=== PATIENT | female | born 1970 | race Caucasian/White ===

== ENCOUNTER → 2018-03-10 | Outpatient (CLI) | payer BC ==
[~2018-03-10] MED LIST: AZELASTINE137 MCG/0. BOTH NARES; CLARITIN,ALAVAR10 MG PO; CLEOCIN300 MG PO; Claritin,Alavart PO; Levothroid,Synthroid PO; MULTIPLE VITAM1 EACH PO; Motrin PO; NATALCARE RX1 TABLET PO; Percocet 5/325,Endoc PO; SYNTHROID150 MCG PO; Senokot S,Pericolace PO; TYLENOL EXTRA500 MG PO; ZOLOFT50 MG PO
== END | disposition home or self-care (01) ==
LOC: NUC 08:07
DX: R14.0 Abdominal distension (gaseous) (principal)
CPT/HCPCS: 78264; A9541

== ENCOUNTER → 2018-04-19 | Outpatient (CLI) | payer BC ==
[~2018-04-19] VITALS: Ht 170.2 cm; Wt 90.7 kg
[~2018-04-19] MED LIST changes: +NOLVADEX10 MG PO
== END | disposition home or self-care (01) ==
LOC: AMB 07:30
PROC: 0DBP8ZZ Excision of Rectum, Via Natural or Artificial Opening Endoscopic (ICD-10-PCS; principal; 2018-04-19)
PROC: 0DB68ZX Excision of Stomach, Via Natural or Artificial Opening Endoscopic, Diagnostic (ICD-10-PCS; principal; 2018-04-19)
DX: K22.10 Ulcer of esophagus without bleeding (principal); K62.1 Rectal polyp; K57.30 Diverticulosis of large intestine without perforation or abscess without bleeding; Z88.1 Allergy status to other antibiotic agents
CPT/HCPCS: 88305; 88342 TC; J7643

== ENCOUNTER 2018-05-08 08:09 | Observation (INO) | payer BC ==
[~2018-05-08] VITALS: Ht 170.2 cm; Wt 93.9 kg
[2018-05-08 09:20] LABS: BASOPHIL (%) 0.4 % (0-1); EOSINOPHIL (%) 2.3 % (0-5); EOSINOPHIL COUNT 0.2 K/uL (0-0.3); HEMATOCRIT 29.1 % (36.0-46.0); HEMOGLOBIN 9.8 G/DL (11.9-15.5); IMMATURE GRANULOCYTE (%) 0.2 % (0.0-0.7); LYMPHOCYTE (%) 27.6 % (15-42); LYMPHOCYTE COUNT 2.3 K/uL (1.0-2.8); MCH 29.6 PG (29.0-34.0); MCHC 33.7 G/DL (30.0-36.0); MCV 87.9 FL (83-99); MONOCYTE (%) 6.7 % (3-12); MONOCYTE COUNT 0.6 K/uL (0-0.8); NEUTROPHIL (%) 62.8 % (45-76); NEUTROPHIL COUNT 5.1 K/uL (1.8-6.4); PLATELET COUNT 154 K/uL (156-360); RBC DIS.WIDTH-CV 12.8 % (11.8-14.6); RBC DIS.WIDTH-SD 41.2 % (39-53); RED BLOOD COUNT 3.31 M/uL (3.80-5.20); WHITE BLOOD COUNT 8.2 K/uL (4.1-10.2)
[2018-05-08 10:08] LABS: CHLORIDE 116 MEQ/L (99-109); CREATININE 0.5 MG/DL (0.6-1.3); GFR ESTIMATE (CALCULATED) > 59 mL/min/; GLUCOSE 88 mg/dL (70-99); POTASSIUM 2.5 MEQ/L (3.7-5.4); SODIUM 143 MEQ/L (136-147); UREA NITROGEN (BUN) 9 mg/dL (9-23)
[2018-05-08] MEDS ORDERED: FIORICET 50-301 EAC1 PO (10:42)
[2018-05-08] MEDS ORDERED: IRON325 M1 PO (10:44)
[2018-05-08 13:25] LABS: ERTH.SED.RATE < 1 MM/HR (0-20)
[2018-05-08 13:42] LABS: ALBUMIN 2.8 G/DL (3.2-4.8); MAGNESIUM 1.5 mg/dl (1.3-2.7); PHOSPHORUS 3.3 mg/dL (2.5-4.9)
[2018-05-08 13:59] VITALS: BP 172/81
[2018-05-08 14:26] LABS: INTACT PARATHYROID HORMONE 46 pg/mL (10-69)
[2018-05-08 14:28] VITALS: BP 167/86
[2018-05-08 15:59] VITALS: BP 167/86
[2018-05-08 16:31] LABS: PTT 20.8 SEC (25-37)
[2018-05-08 16:40] LABS: ALBUMIN 3.9 G/DL (3.2-4.8); ALKALINE PHOSPHATASE 62 IU/L (3-129); ALT (GPT) 18 IU/L (3-49); AST (GOT) 20 IU/L (2-34); CHLORIDE 106 MEQ/L (99-109); CREATININE 0.7 MG/DL (0.6-1.3); GFR ESTIMATE (CALCULATED) > 59 mL/min/; IRON 51 MCG/DL (35-150); SODIUM 139 MEQ/L (136-147); TOTAL BILIRUBIN 0.4 MG/DL (0.0-1.0); TOTAL PROTEIN 6.5 G/DL (6.4-8.3); TRANSFERRIN SATUR. 20 % (20-55); UREA NITROGEN (BUN) 9 mg/dL (9-23)
[2018-05-08 16:53] LABS: THYROTROPIN (TSH) 4.5 MIU/L (0.4-5.5)
[2018-05-08 16:56] LABS: GLUCOSE 133 mg/dL (70-99); POTASSIUM 4.4 MEQ/L (3.7-5.4)
[2018-05-08 16:58] LABS: FERRITIN 65 NG/ML (10-291)
[2018-05-08 17:11] LABS: FOLIC ACID (FOLATE) 14.2 NG/ML (5.0-22.0)
[2018-05-08 17:16] LABS: HEMATOCRIT 39.5 % (36.0-46.0); MCV 87.8 FL (83-99)
[2018-05-08 17:42] LABS: HEMOGLOBIN 12.9 G/DL (11.9-15.5)
[2018-05-08 18:22] VITALS: BP 137/81
[2018-05-08 19:13] VITALS: BP 177/83
[2018-05-08 23:44] VITALS: BP 150/81
[2018-05-09 04:45] VITALS: BP 147/81
[2018-05-09 05:36] LABS: HEMATOCRIT 42.6 % (36.0-46.0); MCH 28.7 PG (29.0-34.0); MCHC 32.9 G/DL (30.0-36.0); MCV 87.3 FL (83-99); RBC DIS.WIDTH-CV 13.1 % (11.8-14.6); RBC DIS.WIDTH-SD 41.5 % (39-53); WHITE BLOOD COUNT 10.6 K/uL (4.1-10.2)
[2018-05-09 06:06] LABS: CHLORIDE 106 MEQ/L (99-109); CREATININE 0.7 MG/DL (0.6-1.3); GFR ESTIMATE (CALCULATED) > 59 mL/min/; GLUCOSE 133 mg/dL (70-99); POTASSIUM 4.4 MEQ/L (3.7-5.4); SODIUM 139 MEQ/L (136-147); UREA NITROGEN (BUN) 13 mg/dL (9-23)
[2018-05-09 06:07] LABS: PLATELET COUNT 234 K/uL (156-360); RED BLOOD COUNT 4.88 M/uL (3.80-5.20)
[2018-05-09 08:00] VITALS: BP 130/71
[2018-05-09 12:30] VITALS: BP 133/69
[2018-05-09] MEDS ORDERED: AMLODIPINE BESYL5 MG PO (13:04)
== END 2018-05-09 13:44 | disposition home or self-care (01) ==
LOC: EME 08:09 → EDOF 11:58 → ENRESERV 11:59 → 4SOUTH 13:41
PROVIDERS: Emergency Medicine; Physician Assistant Medical
DX: R51 Headache (principal); E87.6 Hypokalemia; E83.51 Hypocalcemia; I10 Essential (primary) hypertension; R20.2 Paresthesia of skin; Z85.3 Personal history of malignant neoplasm of breast; R93.0 Abnormal findings on diagnostic imaging of skull and head, not elsewhere classified; R42 Dizziness and giddiness; E03.9 Hypothyroidism, unspecified; Z92.3 Personal history of irradiation; Z79.810 Long term (current) use of selective estrogen receptor modulators (SERMs); F32.9 Major depressive disorder, single episode, unspecified; Z87.891 Personal history of nicotine dependence; Z88.1 Allergy status to other antibiotic agents; Z91.011 Allergy to milk products; Z82.0 Family history of epilepsy and other diseases of the nervous system; Z80.7 Family history of other malignant neoplasms of lymphoid, hematopoietic and related tissues
CPT/HCPCS: 70450; 70544; 70553; 80048; 80053; 82040; 82306; 82330; 82607; 82728; 82746; 83540; 83735; 83970; 84100; 84443; 84466; 85014; 85018; 85025; 85027; 85610; 85651; 85730; 86850; 86900; 86901; 93005; 99281; 99285; G0378; G0480; J0360; J0780; J1200; J1885; J2270; J2765; J2930; J3480; J7030; J7050